=== PATIENT | female | born 1980 | race Caucasian/White ===

== ENCOUNTER → 2020-05-10 | Outpatient (CLI) | payer BC ==
--- NOTE | 2020-05-10 14:12 | KCIC ---
Bilateral digital screening mammograms: Reason for examination: Routine baseline screening. Interpretation was made with the benefit of CAD. The skin and nipples show no abnormalities. No abnormal axillary lymph nodes are seen. The breast par enchyma is extremely dense. (Breast density: Category D.) There appear to be small nodules bilaterall y. These are circumscribed and may represent cysts but recommend further evaluation with ultrasound. There are no suspicious calcifications seen. Impression: Small circumscribed nodules bilaterally. These likely represent cysts. Recommend further evaluation w ith ultrasound. Your patient's mammogram demonstrates that she has dense breast tissue (breast density category C or D), which could hide abnormalities, and if she has other risk factors for breast cancer that have bee n identified, she might benefit from supplemental screening tests that may be suggested by you as her ordering physician. Dense breast tissue, in and of itself, is a relatively common condition. Therefo re, this information is not provided to cause undue concern, but rather to raise your awareness and t o promote discussion with your patient regarding the presence of other risk factors, in addition to d ense breast tissue. Your patient's mammography results will be sent to her. BI-RAD Category 0: Incomplete. Needs additional imaging evaluation. "Our facility is accredited by the [employer] Mammography [employer]." This patient's information has been entered into a reminder system for the patient to be notified wit h the results of her examination and a target date for the next mammogram. Electronically signed by: Maggy Chauhan MD (05/10/2020 2:09 PM) [id number]
== END ==
LOC: KCIC MAMMO 13:15
PROVIDERS: ATTEND Nurse Practitioner
DX: Z12.31 Encounter for screening mammogram for malignant neoplasm of breast (principal); N64.89 Other specified disorders of breast
CPT/HCPCS: 77067

== ENCOUNTER → 2020-05-14 | Outpatient (CLI) | payer BC ==
--- NOTE | 2020-05-14 08:56 | KCIC ---
EXAM: Bilateral breast sonogram. HISTORY: 40-year-old female presents for evaluation of nodularity within both breasts demonstrated on a baseline mammogram dated 05/10/2020. TECHNIQUE: Sonographic imaging of both breasts including all 4 quadrants and the retroareolar regions was performed. COMPARISON: Mammogram dated 05/10/2020. FINDINGS: Sonographic imaging of the right breast demonstrates a 4 mm cyst at the 12:00 position 2 cm from the nipple, a 4 mm cyst at the 6:00 position 2 cm from the nipple, a 4 mm at the 6:00 retroareo lar location, and an 8 mm cyst at the 9:00 position 3 cm from the nipple. These correspond with areas of mammographic nodularity. There are benign axillary lymph nodes. No suspicious lesion is seen. Sonographic imaging of the left breast demonstrates a 3 mm cyst at the 1:00 position 3 cm from the ni pple. There is a 4 mm cyst with internal debris at the 5:00 retroareolar location. These correspond w ith areas of mammographic nodularity. There are benign axillary lymph nodes. No suspicious lesion is seen. IMPRESSION: 1. Benign small simple and complicated cysts within both breasts, corresponding with areas of mammogr aphic nodularity on a baseline mammogram performed 05/10/2020. 2. No suspicious sonographic finding. 3. BI-RADS Category 2: Benign finding(s). Annual mammography is recommended. Electronically signed by: Amelia Harmon MD (05/14/2020 8:53 AM) [email or web address]
== END ==
LOC: KCIC US 07:50
PROVIDERS: ATTEND Nurse Practitioner
DX: N60.01 Solitary cyst of right breast (principal); N60.02 Solitary cyst of left breast
CPT/HCPCS: 76641